=== PATIENT | female | born 1950 | race Caucasian/White ===

== ENCOUNTER → 2016-09-18 | Outpatient (CLI) | payer BC ==
--- NOTE | 2016-09-18 15:26 | Diagnostic Imaging Report ---
PROCEDURE: MRI lumbar spine. TECHNIQUE: Multiplanar, multisequence MRI of the lumbar spine was performed without contrast. INDICATION: Lumbar stenosis. Back pain. FINDINGS: There is severe left convexity scoliosis of the lumbar spine centered around the L2 level. This is associated with left lateral subluxation of L3 over L4 of about 1.4 cm. The alignment at the posterior spinal line is satisfactory. The vertebral body heights are preserved. There is disc desiccation at all levels. Significant disc height loss at L3/L4 and along the concavity of the scoliosis in the upper to mid lumbar spine on the right side and along the left side of L3/L4/L5 discs seen. There are generally mild reactive edema changes along the endplates of the mid lumbar spine levels. T12/L1: There is a diffuse disc bulge with no central canal stenosis. There is mild right lateral recess stenosis. No significant left lateral recess stenosis. No foraminal stenosis. L1/L2: There is a mild disc bulge and mild to moderate facet hypertrophy. No central canal or lateral recess stenosis. No foraminal stenosis. L2/L3: There is a diffuse disc bulge and moderate to severe facet arthropathy, worse on the right side. There is moderate central canal stenosis reducing the AP dimension of the central canal to 8.6 mm and there is mild narrowing of the right lateral recess. No narrowing of the left lateral recess. The foramina demonstrate no significant stenosis on the left and moderate stenosis on the right side. L3/L4: There is a diffuse disc bulge and bilateral moderate to severe facet arthropathy. There is moderate central canal stenosis reducing the AP dimension of the canal to 8.1 mm. Moderate to severe lateral recess stenosis is seen bilaterally. There is moderate to severe foraminal stenosis on the right and moderate stenosis on the left. L4/L5: There is a diffuse disc bulge and bilateral moderate facet hypertrophy. No central canal stenosis. There is bilateral mild lateral recess stenosis. The foramina demonstrate moderate to severe stenosis on the left and mild to moderate stenosis on the right side. L5/S1: There is a mild disc bulge and facet arthropathy, severe on the left and mild on the right. There is no central canal stenosis. There is mild lateral recess stenosis only on the left side. The right lateral recess is patent. There is mild right foraminal stenosis. Moderate to severe foraminal stenosis on the left side, however, is present. IMPRESSION: Severe scoliosis with left convexity centered around L2 level. There are associated advanced facet and disc degenerative changes with multilevel significant neural foraminal stenosis. There is also significant spinal canal stenosis at L3/L4 level. Other findings as above. Dictated by: Dictated on workstation # [id number]
== END ==
LOC: RAD 13:02
PROVIDERS: ATTEND Orthopaedic Surgery
DX: M48.06 Spinal stenosis, lumbar region (principal)
CPT/HCPCS: 72148